=== PATIENT | male | born 1965 | race Caucasian/White ===

== ENCOUNTER 2025-04-03 09:41 | Emergency (ER) | payer OTHER ==
[~2025-04-03] VITALS: Ht 177.8 cm; Wt 112.5 kg
[2025-04-03] MEDS ORDERED: SODIUM CHLORIDE 0.9% 500 ML IV ONE (10:30)
[2025-04-03 10:34] LABS: BASOPHILS 0.3 % (0.2-1.2); EOSINOPHILS 0.4 % (0.8-7.0); LYMPHOCYTES 14.9 % (21.8-53.1); MCH 29.2 PG (25.7-32.2); MCHC 34.6 g/dL (32.3-36.5); MCV 84.4 fL (79.0-92.2); MONOCYTES 7.9 % (5.3-12.2); NEUTROPHILS 76.1 % (34.0-67.9); RBC 4.69 M/uL (4.63-6.08)
[2025-04-03 11:00] LABS: ALT (SGPT) 38.0 U/L (14-59); AST (SGOT) 19.0 U/L (15-37); GLOMERULAR FILTRATION RATE,EST 74.0 mL/min (>60); PROTEIN, TOTAL 7.4 g/dL (6.4-8.2); TSH, 3RD GENERATION 4.372 uIU/mL (0.358-3.740); UREA NITROGEN 14.0 mg/dL (7-18)
[2025-04-03 11:46] VITALS: BP 149/99
== END 2025-04-03 11:45 | disposition home or self-care (01) ==
LOC: ED 09:41
PROVIDERS: Emergency Medicine
DX: E87.1 Hypo-osmolality and hyponatremia (principal)
CPT/HCPCS: 36415; 80053; 83735; 84443; 85025; 99284; J7040